=== PATIENT | female | born 1945 | race Caucasian/White ===

== ENCOUNTER 2020-11-13 08:15 | Observation (INO) ==
--- NOTE | 2020-11-13 08:44 | Emergency Department Note ---
Impression & Plan Paresthesia of right arm and leg, Headache, Dizziness, Renal insufficiency ED Provider Note NAME: SOLANGE PINZON AGE: 75 SEX: F ARRIVES VIA: Walk-In INFORMANT: Patient, ED PROVIDER(S): Delta Max MD CHIEF COMPLAINT: Right sided numbness and tingling. Headache PLAN: Disposition: Admit MEDICAL DECISION MAKING: The patient is a pleasant 75-year-old woman with a past medical history of CKD, hypothyroidism, hyperlipidemia who presents to the emergency department with acute onset of right face, arm and leg numbness and tingling which occurred when she was in the kitchen preparing meal for her grandsons baseball game and began to feel these symptoms and then suddenly felt short of breath. The patient reports waking this morning feeling normal without any complaints. She denies any recent fevers, chills, cough, congestion, GI or symptoms. Denies any known COVID-19 exposures. She denies any history of significant anxiety. On arrival the patient is anxious appearing no acute distress, afebrile with stable vital signs. She has no objective focal neurologic deficits. She subjectively reports difference in sensation of her right face, arm and leg. EKG without overt acute ischemia. Chest x-ray negative for acute c ardiopulmonary process. WBC, H/H in place within normal limits. Chemistry without metabolic acidosis. Creatinine 1.26 consistent with the patient's clinically dry appearance however no prior values for comparison. Lactate 1.7, within normal limits. LFTs are unremarkable. Initial troponin negative/undetectable. COVID-19 PCR negative. Influenza and RSV PCR also negative. CT of the head and CTA of the head and neck were negative for acute findings. Of note, incidental 3 mm aneurysm was i dentified as well as evidence of microvascular disease. Upon reevaluation the patient did feel improvement after IV fluid hydration however still with residual symptoms. Therefore she was in agreement with plan for admission for further evaluation and possible MRI. Case was discussed with Demetrio Bennett, with Dr. Marcus Atkinson hospitalist who will evaluate the patient for admission. This patient was managed with the assistance of resident, Dr. Morrow. I discussed the case with the resident, examined the patient, and confirm the findings and plan as documented in this note. Triage Nursing notes reviewed and agree them. Prior medical records reviewed Vital Signs: reviewed and remarkable for no significant abnormalities Differential diagnosis: Infection, dehydration, metabolic abnormality, hypo/hyperglycemia, electrolyte disturbance, anemia, hypoxia, cardiac sources, intracerebral event, toxicologic, neurologic, as well as other pathologies. ER treatment provided: See below. Diagnostics interpreted by me: ECG: NSR, 63 bpm, no ectopy, no overt ST elevation or depression. Cardiac Monitoring: An order for continuous cardiac monitoring was placed and demonstrated NSR, 63 bpm, no ectopy. Laboratory studies: See below Imaging studies: See below Consultation(s): Case was discussed with Demetrio Bennett PAC, with Dr. Marcus Atkinson hospitalist who will evaluate the patient for admission. HPI: The patient is a pleasant 75-year-old woman with a past medical history of CKD, hypothyroidism, hyperlipidemia who presents to the emergency department with acute onset of right face, arm and leg numbness and tingling which occurred when she was in the kitchen preparing meal for her grandsons baseball game and began to feel these symptoms and then suddenly felt short of breath. The patient reports waking this morning feeling normal without any complaints. She denies any recent fevers, chills, cough, congestion, GI or symptoms. Denies any known COVID-19 exposures. She denies any history of significant anxiety. On arrival the patient is anxious appearing no acute distress, afebrile with stable vital signs. She has no objective focal neurologic deficits. She subjectively reports difference in sensation of her right face, arm and leg. ROS: See above HPI for pertinent positives & negatives. A total of 10 systems reviewed and were otherwise negative. PAST MEDICAL HISTORY:See Below PAST SURGICAL HISTORY:See Below FAMILY HISTORY:See Below SOCIAL HISTORY:See Below HOME MEDICATIONS:See Below ALLERGIES:See Below VITALS:See Below PHYSICAL EXAMINATION: GENERAL: Awake, alert, anxious-appearing, in no distress HENT: Normocephalic, atraumatic. Oropharynx with dry mucous membranes and otherwise unremarkable. EYES: Normal conjunctiva. Sclera non-icteric. EOMI. No nystamgus. PEARRL. NECK: Supple. No nuchal rigidity. FROM. No JVD. RESPIRATORY: Clear to auscultation. CARDIAC: Regular rate, normal rhythm. Extremities warm and well perfused. Pulses equal. ABDOMEN: Soft, non-distended. No tenderness to palpation. No rebound or gu arding. No masses. RECTAL: Deferred. MUSCULOSKELETAL: Chest examination reveals no tenderness. The back is symmetrical on inspection without obvious abnormality. There is no CVA tenderness to palpation. No joint edema. LOWER EXTREMITIES: Calves are equal size bilaterally and non-tender. No edema. No discoloration. NEURO: Normal sensorium. No sensory or motor deficits noted. CNII-XII grossly intact. 5/5 strength and SILT x 4 extremities. Cerebellar function intact including [id number], alternating palms, [id number]. Speech is fluent. SKIN: No rash or jaundice noted. Delta Max MD Past Med/Surg History Medical History CKD (chronic kidney disease), stage III Dyslipidemia Hypothyroidism Surgical History History of hysterectomy Family History Brother Colorectal cancer Sister Uterine cancer Mother Ovarian cancer Other Cancer Social History Smoking Status: Never smoker Hx Alcohol Use: Yes Alcohol Intake Frequency: Monthly or Less Hx Substance Use: No Preferred Language: [place] Islander Telecommunicator Supervisor Required: No Beliefs That Will Affect Care: None Current Living Situation: Spouse Feels Safe at Home: Yes Safety Concerns: Feels Safe At This Time Allergies Allergies Allergy/AdvReac Type Severity Reaction Status Date / Time No Known Allergies Allergy Unverified 11/13/20 12:45 Home Meds Home Medications Medication Instructions Recorded Confirmed levothyroxine [Synthroid] 25 mcg PO DAILY 11/13/20 11/13/20 losartan 50 mg PO DAILY 11/13/20 11/13/20 multivitamin 1 tab PO DAILY 11/13/20 11/13/20 [id number] oil-D3 [Fish 1 cap PO DAILY 11/13/20 11/13/20 Oil-Vit D3] Results & Data (ED) Vital Signs Vital Signs - 24 hr 11/13/20 08:19 11/13/20 08:21 11/13/20 09:15 Temperature 36.4 C L Temperature Source Temporal Artery Scan Pulse Rate 77 Pulse Rate [Left Apical] Pulse Rhythm [Left Apical] Pulse Strength [Left Apical] Respiratory Rate 20 Respiratory Effort / Characteristics Non-Labored Respiratory Depth Normal Respiratory Pattern Regular Blood Pressure 159/88 H Blood Pressure [Right Arm] Blood Pressure Mean 111 Blood Pressure Mean [Right Arm] Blood Pressure Position Sitting Blood Pressure Position [Right Arm] Pulse Oximetry 99 97 99 Oxygen Delivery Method Room Air Room Air Room Air Sepsis Recent Fever Within 48 Hours No Sepsis New/Unexplained Change in Mental Status No Sepsis Action Taken by Nursing No Action Required 11/13/20 11:00 Temperature Temperature Source Pulse Rate Pulse Rate [Left Apical] 68 Pulse Rhythm [Left Apical] Regular Pulse Strength [Left Apical] Normal Respiratory Rate 15 Respiratory Effort / Characteristics Non-Labored Spontaneous Respiratory Depth Normal Respiratory Pattern Regular Blood Pressure Blood Pressure [Right Arm] 197/109 H Blood Pressure Mean Blood Pressure Mean [Right Arm] 138 Blood Pressure Position Blood Pressure Position [Right Arm] Lying Pulse Oximetry 98 Oxygen Delivery Method Room Air Sepsis Recent Fever Within 48 Hours Sepsis New/Unexplained Change in Mental Status Sepsis Action Taken by Nursing Laboratory Data Attestation: I reviewed the patient's lab results. Result diagrams: 11/13/20 09:15 11/13/20 09:15 Lab Results 11/13/20 11/13/20 11/13/20 Range/Units 09:15 09:15 09:15 WBC 5.17 (4.8-10.8) K/uL RBC 4.37 (4.2-5.4) M/uL Hgb 14.5 (12.0-16.0) g/dL Hct 40.8 (37-47) % MCV 93.4 (80-100) fL MCH 33.2 (25-34) pg MCHC 35.5 (32-36) g/dL RDW Std Deviation 46.8 H (36.4-46.3) fL RDW Coeff of Attila 13.7 (11.5-14.5) % Plt Count 266 (130-400) K/uL MPV 8.7 (7.4-10.4) fL Immature Gran % (Auto) 0.2 % Neut % (Auto) 48.5 % Lymph % (Auto) 43.3 % Miner % (Auto) 6.0 % Eos % (Auto) 1.4 % Baso % (Auto) 0.6 % Neut # (Auto) 2.51 (1.4-6.5) K/uL Lymph # (Auto) 2.24 (1.2-3.4) K/uL Miner # (Auto) 0.31 (0.11-0.59) K/uL Eos # (Auto) 0.07 (0-0.5) K/uL Baso # (Auto) 0.03 (0-0.2) K/uL Immature Gran # (Auto) 0.01 (0.00-0.02) K/uL PT (9.0-12.0) Seconds INR (0.9-1.1) APTT (21.0-31.0) Seconds PTT Ratio Sodium 138 (136-145) mmol/L Potassium 4.3 (3.5-5.1) mmol/L Chloride 107 (98-107) mmol/L Carbon Dioxide 25 (21-32) mmol/L Anion Gap 6.0 (3-11) BUN 21 H (7-18) mg/dl Creatinine 1.26 H (0.6-1.2) mg/dl Est Cr Clr Drug Dosing Not Reportable Est GFR ( Amer) 48.3 Est GFR (Non-Af Amer) 41.6 BUN/Creatinine Ratio 16.8 (10-20) Glucose 139 H (70-99) mg/dl Lactate 1.7 (0.4-2.0) mmol/L Calcium 9.4 (8.5-10.1) mg/dl Phosphorus 3.5 (2.5-4.9) mg/dl Magnesium 1.9 (1.8-2.4) mg/dl Total Bilirubin 0.4 (0.2-1) mg/dl AST 12 L (15-37) U/L ALT 26 (12-78) U/L Alkaline Phosphatase 114 (45-117) U/L Troponin I < 0.015 (0-0.045) ng/ml Total Protein 7.6 (6.4-8.2) gm/dl Albumin 3.5 (3.4-5.0) gm/dl Globulin 4.1 H (2.5-4.0) gm/dl Albumin/Globulin Ratio 0.8 L (0.9-2) Lyme Disease IgG Ab (Negative) Lyme Disease IgM Ab (Negative) COVID-19 Eval Order SARS-CoV-2 (PCR) (Negative) Influenza Type A (PCR) (Neg) Influenza Type B (PCR) (Neg) RSV (RT-PCR) (Neg) 11/13/20 11/13/20 11/13/20 Range/Units 09:15 09:15 09:20 WBC (4.8-10.8) K/uL RBC (4.2-5.4) M/uL Hgb (12.0-16.0) g/dL Hct (37-47) % MCV (80-100) fL MCH (25-34) pg MCHC (32-36) g/dL RDW Std Deviation (36.4-46.3) fL RDW Coeff of Attila (11.5-14.5) % Plt Count (130-400) K/uL MPV (7.4-10.4) fL Immature Gran % (Auto) % Neut % (Auto) % Lymph % (Auto) % Miner % (Auto) % Eos % (Auto) % Baso % (Auto) % Neut # (Auto) (1.4-6.5) K/uL Lymph # (Auto) (1.2-3.4) K/uL Miner # (Auto) (0.11-0.59) K/uL Eos # (Auto) (0-0.5) K/uL Baso # (Auto) (0-0.2) K/uL Immature Gran # (Auto) (0.00-0.02) K/uL PT 9.4 (9.0-12.0) Seconds INR 0.9 (0.9-1.1) APTT 24.4 (21.0-31.0) Seconds PTT Ratio 0.9 Sodium (136-145) mmol/L Potassium (3.5-5.1) mmol/L Chloride (98-107) mmol/L Carbon Dioxide (21-32) mmol/L Anion Gap (3-11) BUN (7-18) mg/dl Creatinine (0.6-1.2) mg/dl Est Cr Clr Drug Dosing Est GFR ( Amer) Est GFR (Non-Af Amer) BUN/Creatinine Ratio (10-20) Glucose (70-99) mg/dl Lactate (0.4-2.0) mmol/L Calcium (8.5-10.1) mg/dl Phosphorus (2.5-4.9) mg/dl Magnesium (1.8-2.4) mg/dl Total Bilirubin (0.2-1) mg/dl AST (15-37) U/L ALT (12-78) U/L Alkaline Phosphatase (45-117) U/L Troponin I (0-0.045) ng/ml Total Protein (6.4-8.2) gm/dl Albumin (3.4-5.0) gm/dl Globulin (2.5-4.0) gm/dl Albumin/Globulin Ratio (0.9-2) Lyme Disease IgG Ab Negative (Negative) Lyme Disease IgM Ab Negative (Negative) COVID-19 Eval Order CovFluRsv at [facility] SARS-CoV-2 (PCR) (Negative) Influenza Type A (PCR) (Neg) Influenza Type B (PCR) (Neg) RSV (RT-PCR) (Neg) 11/13/20 Range/Units 09:20 WBC (4.8-10.8) K/uL RBC (4.2-5.4) M/uL Hgb (12.0-16.0) g/dL Hct (37-47) % MCV (80-100) fL MCH (25-34) pg MCHC (32-36) g/dL RDW Std Deviation (36.4-46.3) fL RDW Coeff of Attila (11.5-14.5) % Plt Count (130-400) K/uL MPV (7.4-10.4) fL Immature Gran % (Auto) % Neut % (Auto) % Lymph % (Auto) % Miner % (Auto) % Eos % (Auto) % Baso % (Auto) % Neut # (Auto) (1.4-6.5) K/uL Lymph # (Auto) (1.2-3.4) K/uL Miner # (Auto) (0.11-0.59) K/uL Eos # (Auto) (0-0.5) K/uL Baso # (Auto) (0-0.2) K/uL Immature Gran # (Auto) (0.00-0.02) K/uL PT (9.0-12.0) Seconds INR (0.9-1.1) APTT (21.0-31.0) Seconds PTT Ratio Sodium (136-145) mmol/L Potassium (3.5-5.1) mmol/L Chloride (98-107) mmol/L Carbon Dioxide (21-32) mmol/L Anion Gap (3-11) BUN (7-18) mg/dl Creatinine (0.6-1.2) mg/dl Est Cr Clr Drug Dosing Est GFR ( Amer) Est GFR (Non-Af Amer) BUN/Creatinine Ratio (10-20) Glucose (70-99) mg/dl Lactate (0.4-2.0) mmol/L Calcium (8.5-10.1) mg/dl Phosphorus (2.5-4.9) mg/dl Magnesium (1.8-2.4) mg/dl Total Bilirubin (0.2-1) mg/dl AST (15-37) U/L ALT (12-78) U/L Alkaline Phosphatase (45-117) U/L Troponin I (0-0.045) ng/ml Total Protein (6.4-8.2) gm/dl Albumin (3.4-5.0) gm/dl Globulin (2.5-4.0) gm/dl Albumin/Globulin Ratio (0.9-2) Lyme Disease IgG Ab (Negative) Lyme Disease IgM Ab (Negative) COVID-19 Eval Order SARS-CoV-2 (PCR) NEGATIVE (Negative) Influenza Type A (PCR) Negative (Neg) Influenza Type B (PCR) Negative (Neg) RSV (RT-PCR) Negative (Neg) Administered Medications Heparin Sodium (Porcine) (Heparin Sod 5,000 Unit/0.5 Ml Vial) 5,000 units SQ Q8 CORRINA Stop: 12/13/20 13:59 Last Admin: 11/13/20 20:33 Dose: 5,000 units Documented by: [id number] Admin: 11/13/20 15:24 Dose: 5,000 units Documented by: [id number] Discontinued Medications Acetaminophen (Acetaminophen 1000 Mg/100 Ml Iv) 1,000 mg IV Q8H PRN PRN Reason: Pain Stop: 11/16/20 09:24 Last Admin: 11/13/20 11:03 Dose: 1,000 mg Documented by: [id number] Clopidogrel Bisulfate (Clopidogrel Bisulfate 75 Mg Tab) 75 mg PO NOW STA Stop: 11/13/20 15:30 Last Admin: 11/13/20 16:55 Dose: 75 mg Documented by: [id number] Gadobutrol (Gadobutrol 65ml Vial) 8.5 ml IV ONCE ONE Stop: 11/13/20 18:55 Last Admin: 11/13/20 18:55 Dose: 8.5 ml Documented by: [id number] Lactated Ringer's (Lr) 1,000 mls @ 999 mls/hr IV .Q1H1M CORRINA Stop: 11/13/20 10:30 Last Infusion: 11/13/20 12:05 Dose: 0 mls/hr Documented by: [id number] Admin: 11/13/20 11:04 Dose: 999 mls/hr Documented by: [id number] Ioversol (Ioversol 350 500ml) 116 ml IV ONCE ONE Stop: 11/13/20 10:07 Last Admin: 11/13/20 13:36 Dose: Not Given Documented by: [id number] Ondansetron HCl (Ondansetron Inj 2 Mg/Ml 2 Ml Vial) 4 mg IV NOW STA Stop: 11/13/20 08:50 Last Admin: 11/13/20 09:23 Dose: 4 mg Documented by: [id number] Imaging Data Radiologist's Impression: Chest X-Ray 11/13/20 08:49 XR chest 1V portable HISTORY: 75 years-old Female Chest Pain . Acute atypical chest pain COMPARISON: None TECHNIQUE: Portable AP view of the chest FINDINGS: Cardiac silhouette is upper limits of normal in size. No pneumothorax, pleural effusion, airspace consolidation or overt pulmonary edema. Bones of the chest appear grossly intact. Degenerative changes of the shoulders and spine. IMPRESSION: No acute process. ACT 112: Negative or not required by law. The above report was generated using voice recognition software. It may contain grammatical, syntax or spelling errors. Electronically signed by: Keith Moreno M.D. 11/13/2020 9:[address] 11/13/20 08:[address] DOSE: HISTORY: Right-sided numbness. Stroke Like Symptoms TECHNIQUE: Multiaxial CT images of the head were performed without the use of intravenous contrast. Automated exposure control was utilized for this study. A dose lowering technique was utilized adhering to the principles of ALARA. Comparison: None. Findings: The paranasal sinuses and mastoid air cells are clear. The calvarium and skull base are intact. There is no mass, hematoma, midline shift, acute infarct. White matter hypodensity is nonspecific but suggestive of microvascular ischemic change. The ventricles and sulci demonstrate mild age-related involutional changes. Impression: No acute intracranial abnormality. Atrophy and microvascular ischemic changes. ACT 112: Negative or not required by law. Electronically signed by: Ciro Santos M.D. 11/13/2020 10:37 AM Head CTA 11/13/20 08:50 CTA ANGIOGRAPHY OF THE HEAD CLINICAL HISTORY: Stroke like symptoms. Right-sided numbness. COMPARISON STUDY: No previous studies for comparison. TECHNIQUE: Helical axial images of the head were obtained following uneventful intravenous administration of 116 cc of Optiray. Sagittal and coronal reconstructions were viewed as well as maximal intensity projections on an independent 3-D workstation. Automated exposure control was utilized for the study. A dose lowering technique was utilized adhering to the principles of ALARA. CT DOSE: 1073.07 mGy.cm FINDINGS: No acute intracranial hemorrhage, midline shift or mass effect is present. Ventricular system is normal. Basilar cisterns are patent. There are no extra-axial collections. No central vessel occlusion is noted. Note is made of a 3 mm aneurysm arising from the A2 segment of the left anterior cerebral artery shown on axial image 129 of 223. Tiny outpouchings of the bilateral cavernous carotids are noted and related to atherosclerosis. Posterior circulation is intact. No dissection within the intracranial vessels. Right vertebral artery is dominant. Left A1 segment is hypoplastic. IMPRESSION: 1. No central vessel occlusion. 2. 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 3. Mild atherosclerosis of the intracranial vessels. ACT 112: Negative or not required by law. Electronically signed by: Basim Vang M.D. 11/13/2020 10:42 AM Neck CTA 11/13/20 08:50 NECK CTA HISTORY: Right-sided numbness. Stroke Like Symptoms TECHNIQUE: Multiaxial CT images of the neck were performed following the intravenous administration of contrast to evaluate the major cervical vessels. Maximum intensity projection images were also obtained. All measurements were calculated based on NASCET criteria. A dose lowering technique was utilized adhering to the principles of ALARA. COMPARISON STUDY: None. FINDINGS: The aortic arch and proximal great vessels are widely patent. There is no significant stenosis, occlusion, or dissection identified within the bilateral common carotid, internal carotid, or vertebral arteries. Hypoplastic left vertebral artery. There is a focal slightly beaded appearance within the distal left internal carotid artery best seen on image 270. No associated stenosis. This could represent fibromuscular dysplasia. IMPRESSION: 1. No significant stenosis, occlusion, or dissection identified within the carotid or vertebral arteries. 2. There is a focal slightly beaded appearance within the distal left internal carotid artery. No associated stenosis. This could represent fibromuscular dysplasia. ACT 112: Negative or not required by law. Electronically signed by: Ciro Santos M.D. 11/13/2020 10:41 AM Discharge Plan Visit Data Chief Complaint: Shortness of Breath/Dyspnea Stated Complaint: NUMBNESS GOING DOWN RIGHT SIDE - SOB ED Provider: Delta Max ED Midlevel Provider: Dylon Morrow I. Discharge Problem: Paresthesia of right arm and leg, Headache, Dizziness, Renal insufficiency Patient Disposition: Admitted As Inpatient Discharge Instructions Interventions: ED Discharge Assessment Last Done: 11/13/20 13:06 Discharge Problem: Headache Qualifiers: Headache type: unspecified Headache chronicity pattern: unspecified pattern Intractability: not intractable Qualified Code(s): R51.9 - Headache, unspecified
[2020-11-13] MEDS ORDERED: ONDANSETRON INJ 2 MG/ML 2 ML VIAL IV STA (08:49)
--- NOTE | 2020-11-13 09:13 | XRay Report ---
XR chest 1V portable HISTORY: 75 years-old Female Chest Pain . Acute atypical chest pain COMPARISON: None TECHNIQUE: Portable AP view of the chest FINDINGS: Cardiac silhouette is upper limits of normal in size. No pneumothorax, pleural effusion, airspace con solidation or overt pulmonary edema. Bones of the chest appear grossly intact. Degenerative changes o f the shoulders and spine. IMPRESSION: No acute process. ACT 112: Negative or not required by law. The above report was generated using voice recognition software. It may contain grammatical, syntax o r spelling errors. Electronically signed by: Keith Moreno M.D. 11/13/2020 9:11 AM
[2020-11-13 09:24] LABS: Basophils # (auto) 0.03 K/uL (0-0.2); Basophils % (auto) 0.6 %; Eosinophils # (auto) 0.07 K/uL (0-0.5); Eosinophils % (auto) 1.4 %; Hematocrit (blood only) 40.8 % (37-47); Hemoglobin 14.5 g/dL (12.0-16.0); Immature Granulocytes # (auto) 0.01 K/uL (0.00-0.02); Immature Granulocytes % (auto) 0.2 %; Lymphocytes # (auto) 2.24 K/uL (1.2-3.4); Lymphocytes % (auto) 43.3 %; Mean Corpuscular Hemoglobin 33.2 pg (25-34); Mean Corpuscular Hgb Conc 35.5 g/dL (32-36); Mean Corpuscular Volume 93.4 fL (80-100); Mean Platelet Volume 8.7 fL (7.4-10.4); Monocytes # (auto) 0.31 K/uL (0.11-0.59); Neutrophils # (auto) 2.51 K/uL (1.4-6.5); Neutrophils % (auto) 48.5 %; Platelet Count 266 K/uL (130-400); RDW Coefficient of Variation 13.7 % (11.5-14.5); RDW Standard Deviation 46.8 fL (36.4-46.3); Red Blood Count 4.37 M/uL (4.2-5.4); White Blood Count 5.17 K/uL (4.8-10.8)
--- NOTE | 2020-11-13 09:24 | Emergency Department Note ---
ED Visit Note I have seen and evaluated the patient. I have discussed the case with Dr. Max and agree with his plan as documented. Dylon Morrow MD PGY-2 . Resident Activity Tracking Resident Involvement: Resident Care Provided Care Provided: Adult ED
[2020-11-13] MEDS ORDERED: ACETAMINOPHEN 1000 MG/100 ML IV IV PRN (09:25)
[2020-11-13] MEDS ORDERED: LACTATED RINGER'S 1,000 ML IV SCH (09:30)
[2020-11-13 09:38] LABS: INR 0.9 (0.9-1.1); Partial Thromboplastin Ratio 0.9; Partial Thromboplastin Time 24.4 Seconds (21.0-31.0); Prothrombin Time 9.4 Seconds (9.0-12.0)
[2020-11-13 09:49] LABS: Albumin Level 3.5 gm/dl (3.4-5.0); BUN Creatinine Ratio 16.8 (10-20); Blood Urea Nitrogen 21 mg/dl (7-18); Calcium 9.4 mg/dl (8.5-10.1); Carbon Dioxide 25 mmol/L (21-32); Chloride 107 mmol/L (98-107); Est GFR (African American) 48.3; Est GFR (Non-African American) 41.6; Glucose 139 mg/dl (70-99); Magnesium 1.9 mg/dl (1.8-2.4); Potassium 4.3 mmol/L (3.5-5.1); Sodium 138 mmol/L (136-145)
[2020-11-13 09:54] LABS: Alanine Aminotransferase 26 U/L (12-78); Albumin Globulin Ratio 0.8 (0.9-2); Alkaline Phosphatase 114 U/L (45-117); Aspartate Aminotransferase 12 U/L (15-37); Bilirubin,Total 0.4 mg/dl (0.2-1); Globulin 4.1 gm/dl (2.5-4.0); Phosphorus 3.5 mg/dl (2.5-4.9); Total Protein 7.6 gm/dl (6.4-8.2); Troponin I < 0.015 ng/ml (0-0.045)
[2020-11-13] MEDS ORDERED: OPTIRAY 350 500ml IV ONE (10:06)
[2020-11-13 10:35] LABS: Influenza A virus by PCR Negative (Neg); Influenza B virus by PCR Negative (Neg); RSV by PCR Negative (Neg); SARS CoV2 RNA(COVID-19) InHosp NEGATIVE (Negative)
--- NOTE | 2020-11-13 10:39 | CT Scan Report ---
HEAD CT NONCONTRAST CT DOSE: HISTORY: Right-sided numbness. Stroke Like Symptoms TECHNIQUE: Multiaxial CT images of the head were performed without the use of intravenous contrast. A utomated exposure control was utilized for this study. A dose lowering technique was utilized adheri ng to the principles of ALARA. Comparison: None. Findings: The paranasal sinuses and mastoid air cells are clear. The calvarium and skull base are int act. There is no mass, hematoma, midline shift, acute infarct. White matter hypodensity is nonspecifi c but suggestive of microvascular ischemic change. The ventricles and sulci demonstrate mild age-rela shanta involutional changes. Impression: No acute intracranial abnormality. Atrophy and microvascular ischemic changes. ACT 112: Negative or not required by law. Electronically signed by: Ciro Santos M.D. 11/13/2020 10:37 AM
--- NOTE | 2020-11-13 10:42 | CT Scan Report ---
NECK CTA HISTORY: Right-sided numbness. Stroke Like Symptoms TECHNIQUE: Multiaxial CT images of the neck were performed following the intravenous administration o f contrast to evaluate the major cervical vessels. Maximum intensity projection images were also obta ined. All measurements were calculated based on NASCET criteria. A dose lowering technique was utili zed adhering to the principles of ALARA. COMPARISON STUDY: None. FINDINGS: The aortic arch and proximal great vessels are widely patent. There is no significant sten osis, occlusion, or dissection identified within the bilateral common carotid, internal carotid, or v ertebral arteries. Hypoplastic left vertebral artery. There is a focal slightly beaded appearance wit hin the distal left internal carotid artery best seen on image 270. No associated stenosis. This coul d represent fibromuscular dysplasia. IMPRESSION: 1. No significant stenosis, occlusion, or dissection identified within the carotid or vertebral arter ies. 2. There is a focal slightly beaded appearance within the distal left internal carotid artery. No ass ociated stenosis. This could represent fibromuscular dysplasia. ACT 112: Negative or not required by law. Electronically signed by: Ciro Santos M.D. 11/13/2020 10:41 AM
--- NOTE | 2020-11-13 10:44 | CT Scan Report ---
CTA ANGIOGRAPHY OF THE HEAD CLINICAL HISTORY: Stroke like symptoms. Right-sided numbness. COMPARISON STUDY: No previous studies for comparison. TECHNIQUE: Helical axial images of the head were obtained following uneventful intravenous administr ation of 116 cc of Optiray. Sagittal and coronal reconstructions were viewed as well as maximal inten sity projections on an independent 3-D workstation. Automated exposure control was utilized for the study. A dose lowering technique was utilized adhering to the principles of ALARA. CT DOSE: 1073.07 mGy.cm FINDINGS: No acute intracranial hemorrhage, midline shift or mass effect is present. Ventricular syst em is normal. Basilar cisterns are patent. There are no extra-axial collections. No central vessel oc clusion is noted. Note is made of a 3 mm aneurysm arising from the A2 segment of the left anterior ce rebral artery shown on axial image 129 of 223. Tiny outpouchings of the bilateral cavernous carotids are noted and related to atherosclerosis. Posterior circulation is intact. No dissection within the i ntracranial vessels. Right vertebral artery is dominant. Left A1 segment is hypoplastic. IMPRESSION: 1. No central vessel occlusion. 2. 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 3. Mild atherosclerosis of the intracranial vessels. ACT 112: Negative or not required by law. Electronically signed by: Basim Vang M.D. 11/13/2020 10:42 AM
--- NOTE | 2020-11-13 11:50 | History & Physical Report ---
Date of Service November 13, 2020 History of Present Illness Primary Care Provider: Diogo Harvey MD Home Medications Medication Instructions Recorded Confirmed Type levothyroxine [Synthroid] 25 mcg PO DAILY 11/13/20 11/13/20 History losartan 50 mg PO DAILY 11/13/20 11/13/20 History multivitamin 1 tab PO DAILY 11/13/20 11/13/20 History [id number]-[id number] oil-D3 [Fish 1 cap PO DAILY 11/13/20 11/13/20 History Oil-Vit D3] Past Med/Surg History Social History Feels Safe at Home: Yes Results & Data Results & Data ([facility]) Vital Signs (Past 12 Hours) Vital Signs Temp Pulse Pulse Resp BP BP Pulse Ox 11/13/20 11:00 68 15 197/109 H 98 11/13/20 09:15 99 11/13/20 08:21 97 11/13/20 08:19 36.4 C L 77 20 159/88 H 99 Code Status & VTE Plan VTE Prophylaxis Plan VTE Prophylaxis will be ordered: Yes
[2020-11-13] MEDS ORDERED: ACETAMINOPHEN 325 MG TAB PO PRN (13:32)
[2020-11-13] MEDS ORDERED: POLYETHYLENE (MIRALAX) 17 GM PACK PO PRN (13:32)
[2020-11-13] MEDS ORDERED: ONDANSETRON INJ 2 MG/ML 2 ML VIAL IV PRN (13:32)
[2020-11-13] MEDS ORDERED: PHARMACIST DISCHARGE MED REC CONSULT PRN (13:32)
--- NOTE | 2020-11-13 14:04 | History & Physical Report ---
Date of Service November 13, 2020 Assessment & Plan (1) Paresthesia of right arm and leg: Pt is 75 y/o F with PMH CKD III, dyslipidemia, hypothyroidism presented to ER with c/o right sided arm and leg paresthesias, lightheaded sensation today. In ER afebrile, BP: 159/88, R: 20, P: 77, 99% on RA. No leukocytosis, no significant electrolyte abnormality, glucose: 139, negative troponin, Negative COVID 19 PCR CTA Head: No central vessel occlusion. 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 Mild atherosclerosis of the intracranial vessels. NECK CTA: No significant stenosis, occlusion, or dissection identified within the carotid or vertebral arteries. There is a focal slightly beaded appearance within the distal left internal carotid artery. No associated stenosis. This could represent fibromuscular dysplasia. DDX: TIA, CVA, hypertensive emergency -Pt took 325mg aspirin prior to arrival -Tele to monitor for arrhythmias -Monitor BP closely. Had reading of 197/109 in ER back down to 154/93 -Obtain orthostatics. Pt received 1L LR in ER. May need additional fluid. -TSH, UA, Vitamin B12 pending -MRI brain -echo with bubble study -aspiration precautions -PT/OT consult -May need to add statin, aspirin pending further studies -neurology consult (2) CKD (chronic kidney disease), stage III: Cr: 1.26. Baseline Cr: 1.4 -Monitor renal functions, avoid nephrotoxic agents when possible (3) Hypothyroidism: -TSH pending -Continue levothyroxine (4) Dyslipidemia: -Continue fish oil -Lipids pending, may need additional medication DVT Prophylaxis -SCDs Full Code as per discussion with pt Follows with Dr Harvey for routine care Pt was seen and care coordinated with Dr May. See addendum Admission and Anticipated Discharge Date Admission Date: November 13, 2020 History of Present Illness Chief Complaint: right sided paresthesias Primary Care Provider: Diogo Harvey MD Pt is 75 y/o F with PMH CKD III, dyslipidemia, hypothyroidism presented to ER with c/o right sided paresthesias today. Patient states this morning was standing in kitchen for approximately 20 minutes when she started with right arm and right leg paresthesias described as tingling sensation. She also reports felt lightheaded. She reports she went upstairs to let her and was afraid that she would fall secondary to the paresthesias however is unsure if she had weakness of her extremities. When she was telling her about symptoms she reported that she was having trouble catching her breath and had some slight nausea. Patient reports she thinks this was secondary to being concerned about the symptoms she was having. Also complains of "headachy feeling" but not true headache. Denies any vomiting, diarrhea, syncope, vision changes. She took full aspirin prior to arrival. Had cup coffee today and a little orange juice. Patient reports was still having right-sided paresthesias upon ER arrival however thinks they have since resolved. She does report that she felt lightheaded when ambulating to bathroom in ER. Patient received a second COVID-19 vaccination on 10/06/2020. She traveled to [place] 10/22/2020 and returned home last week. Denies any known tick bites. Denies fever/chills, diaphoresis, syncope, vision changes, neck pain, CP, orthopnea, palpitations, cough, sore throat, choking, otalgia, rhinorrhea, abdominal pain, extremity edema, rashes, urinary symptoms. Allergies Allergy/AdvReac Type Severity Reaction Status Date / Time No Known Allergies Allergy Unverified 11/13/20 12:45 Home Medications Medication Instructions Recorded Confirmed Type levothyroxine [Synthroid] 25 mcg PO DAILY 11/13/20 11/13/20 History losartan 50 mg PO DAILY 11/13/20 11/13/20 History multivitamin 1 tab PO DAILY 11/13/20 11/13/20 History [id number]-ago-epa-fish oil-D3 [Fish 1 cap PO DAILY 11/13/20 11/13/20 History Oil-Vit D3] Past Med/Surg History Medical History CKD (chronic kidney disease), stage III Dyslipidemia Hypothyroidism Surgical History History of hysterectomy Family History Brother Colorectal cancer Sister Uterine cancer Mother Ovarian cancer Other Cancer Social History Smoking Status: Never smoker Hx Alcohol Use: Yes Alcohol Intake Frequency: Monthly or Less Hx Substance Use: No Preferred Language: Icelandic 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 Beliefs That Will Affect Care: None Current Living Situation: Spouse Feels Safe at Home: Yes Safety Concerns: Feels Safe At This Time Review of Systems Review of Systems: All systems reviewed & are unremarkable except as noted in HPI & below Physical Exam Physical Exam: General: no distress, WDWN Head: normocephalic, atraumatic Eyes: PERRL, EOM's intact, no nystagmus, conjunctiva non-injected, anicteric ENT: normal inspection external ears, nose, mucous membranes moist Neck: supple, trachea midline, ROM intact Lungs: clear, no respiratory distress, no wheezing/rhonchi/rales CV: RRR, no murmur, no pretibial edema Abd: normal BS, soft, non-tender Ext: no cyanosis, no calf tenderness Neuro: A&O x 3, Facial sensation is intact and symmetric, face is strong and symmetric, Hearing grossly intact, Soft palate elevates symmetrically, no dysarthria, Shoulder shrug intact, Tongue is midline, normal movement, no fasciculations. Muscle tone normal. Normal affect Skin: warm, dry Results & Data Results & Data ([facility]) Vital Signs (Past 12 Hours) Vital Signs Temp Pulse Pulse Resp BP BP BP 11/13/20 13:32 37.0 C 65 14 151/99 H 11/13/20 13:06 70 20 159/86 H 11/13/20 11:00 68 15 197/109 H 11/13/20 09:15 11/13/20 08:21 11/13/20 08:19 36.4 C L 77 20 159/88 H Pulse Ox 11/13/20 13:32 95 11/13/20 13:06 98 11/13/20 11:00 98 11/13/20 09:15 99 11/13/20 08:21 97 11/13/20 08:19 99 Laboratory Results Short CBC 11/13/20 11/13/20 Range/Units 09:15 09:15 WBC 5.17 (4.8-10.8) K/uL Hgb 14.5 (12.0-16.0) g/dL Hct 40.8 (37-47) % Plt Count 266 (130-400) K/uL Creatinine 1.26 H (0.6-1.2) mg/dl BMP 11/13/20 09:15 Sodium 138 Potassium 4.3 Chloride 107 Carbon Dioxide 25 BUN 21 H Creatinine 1.26 H Glucose 139 H Calcium 9.4 Cardiac Enzymes 11/13/20 Range/Units 09:15 Troponin I < 0.015 (0-0.045) ng/ml Liver Function 11/13/20 Range/Units 09:15 Total Bilirubin 0.4 (0.2-1) mg/dl AST 12 L (15-37) U/L ALT 26 (12-78) U/L Alkaline Phosphatase 114 (45-117) U/L Albumin 3.5 (3.4-5.0) gm/dl Diagnostic Findings Chest X-Ray 11/13/20 08:49 XR chest 1V portable HISTORY: 75 years-old Female Chest Pain . Acute atypical chest pain COMPARISON: None TECHNIQUE: Portable AP view of the chest FINDINGS: Cardiac silhouette is upper limits of normal in size. No pneumothorax, pleural effusion, airspace consolidation or overt pulmonary edema. Bones of the chest appear grossly intact. Degenerative changes of the shoulders and spine. IMPRESSION: No acute process. ACT 112: Negative or not required by law. The above report was generated using voice recognition software. It may contain grammatical, syntax or spelling errors. Electronically signed by: Keith Moreno M.D. 11/13/2020 9:[address] 11/13/20 08:[address] DOSE: HISTORY: Right-sided numbness. Stroke Like Symptoms TECHNIQUE: Multiaxial CT images of the head were performed without the use of intravenous contrast. Automated exposure control was utilized for this study. A dose lowering technique was utilized adhering to the principles of ALARA. Comparison: None. Findings: The paranasal sinuses and mastoid air cells are clear. The calvarium and skull base are intact. There is no mass, hematoma, midline shift, acute infarct. White matter hypodensity is nonspecific but suggestive of microvascular ischemic change. The ventricles and sulci demonstrate mild age-related involutional changes. Impression: No acute intracranial abnormality. Atrophy and microvascular ischemic changes. ACT 112: Negative or not required by law. Electronically signed by: Ciro Santos M.D. 11/13/2020 10:37 AM Head CTA 11/13/20 08:50 CTA ANGIOGRAPHY OF THE HEAD CLINICAL HISTORY: Stroke like symptoms. Right-sided numbness. COMPARISON STUDY: No previous studies for comparison. TECHNIQUE: Helical axial images of the head were obtained following uneventful intravenous administration of 116 cc of Optiray. Sagittal and coronal reconstructions were viewed as well as maximal intensity projections on an independent 3-D workstation. Automated exposure control was utilized for the study. A dose lowering technique was utilized adhering to the principles of ALARA. CT DOSE: 1073.07 mGy.cm FINDINGS: No acute intracranial hemorrhage, midline shift or mass effect is present. Ventricular system is normal. Basilar cisterns are patent. There are no extra-axial collections. No central vessel occlusion is noted. Note is made of a 3 mm aneurysm arising from the A2 segment of the left anterior cerebral artery shown on axial image 129 of 223. Tiny outpouchings of the bilateral cavernous carotids are noted and related to atherosclerosis. Posterior circulation is intact. No dissection within the intracranial vessels. Right vertebral artery is dominant. Left A1 segment is hypoplastic. IMPRESSION: 1. No central vessel occlusion. 2. 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 3. Mild atherosclerosis of the intracranial vessels. ACT 112: Negative or not required by law. Electronically signed by: Basim Vang M.D. 11/13/2020 10:42 AM Neck CTA 11/13/20 08:50 NECK CTA HISTORY: Right-sided numbness. Stroke Like Symptoms TECHNIQUE: Multiaxial CT images of the neck were performed following the intravenous administration of contrast to evaluate the major cervical vessels. Maximum intensity projection images were also obtained. All measurements were calculated based on NASCET criteria. A dose lowering technique was utilized adhering to the principles of ALARA. COMPARISON STUDY: None. FINDINGS: The aortic arch and proximal great vessels are widely patent. There is no significant stenosis, occlusion, or dissection identified within the bilateral common carotid, internal carotid, or vertebral arteries. Hypoplastic left vertebral artery. There is a focal slightly beaded appearance within the distal left internal carotid artery best seen on image 270. No associated stenosis. This could represent fibromuscular dysplasia. IMPRESSION: 1. No significant stenosis, occlusion, or dissection identified within the carotid or vertebral arteries. 2. There is a focal slightly beaded appearance within the distal left internal carotid artery. No associated stenosis. This could represent fibromuscular dysplasia. ACT 112: Negative or not required by law. Electronically signed by: Ciro Santos M.D. 11/13/2020 10:41 AM Code Status & VTE Plan VTE Prophylaxis Plan VTE Prophylaxis will be ordered: Yes Supervising Physician Co-Signing Physician Notes Attending addendum The patient was seen and examined in medical telemetry unit She was admitted with strokelike symptoms involving right arm and leg paresthesia and tingling associated with lightheadedness, headache and some nausea Symptoms have resolved following admission and he still complains to have some dizziness on standing and ambulating On examination Lying in bed comfortably Anxious Hemodynamically stable with blood pressure of 151/99 Chest-clear to auscultate bilaterally Heart-S1-S2, regular Abdomen-benign Extremities-trace edema bilaterally LUMP RECEIVER-alert, awake and oriented x3. No dysarthria and/or dysphagia. No focal sensory and motor deficit Admission labs, EKG and imaging studies reviewed Noted to have 3 mm aneurysm arising from the A2 segment of the left intracerebral artery but no other significant abnormalities in labs and/or imaging studies Will have MRI to rule out any stroke Appreciate neurology input and recommendation Agree with assessment and plan as outlined above by MCKAYLA Swan Dr
--- NOTE | 2020-11-13 14:11 | Neurology Consultation ---
Date of Consultation November 13, 2020 Assessment & Plan (1) Paresthesia of right arm and le. CTA head/neck 3mm ANR will need repeat imaging in 6 months 2. MRI with and without ordered 3. TTE- with bubble study 4. liberalize blood pressure for 24-48 hours 5. then optimize HTN ,HLD, LDL <70 6. PT/OT for discharge needs- does not appear to have any needs at this time 7. start plavix 75 mg and aspirin 81 mg daily was not on aspirin prior to admission continue for 21 days then stop plavix continue aspirin for life 8. healthy diet and exercise - weight control 9. further recommendations to follow once imaging is completed Present on Admission?: Yes Supervising Physician Co-Signing Physician Notes Patient was seen and examined. Discussed wtih Estefany Rudolph PA-C and agree with recommendations as noted. A 75 chan old pleasant Woman with Hx of HTN admitted with transient right sided numbness. Now resolved. Denies weakness or dysarthria. No hx of similar symptoms. Neuro examine non focal. CTA head and neck shows incidental aneurysm likely not significant. Agree with repeat CTA in 6 months. Symptoms concerning for possible TIA. Start ASA and PLavix as noted for 21 days then ASA. MRI brain pending. Permissive HTN for now, treat for SBP>220, and DBP>110 mm Hg. Will follow up tomorrow. History of Present Illness Reason for Consultation: stroke work up Requesting Physician: Erick May MD Attending Physician: Erick May MD History of Present Illness Opal is a 75 year old femal with PMH paresthesias right leg, CKD III, hypoth yroidism, HLD who woke up this am in her normal health. She was fixing breakfast for her grandson and had a sudden onset of right sided numbness with a modest headache. She thinks it lasted about 2 hours and when she arrived at [facility] it had resolved. She denies slurred speech, falls, weakness, vision changes. She has never had this type of symptoms and does not have a history of stroke or TIA. no family history of stroke. Allergies Allergy/AdvReac Type Severity Reaction Status Date / Time No Known Allergies Allergy Unverified 11/13/20 12:45 Home Medications Medication Instructions Recorded Confirmed Type levothyroxine [Synthroid] 25 mcg PO DAILY 11/13/20 11/13/20 History losartan 50 mg PO DAILY 11/13/20 11/13/20 History multivitamin 1 tab PO DAILY 11/13/20 11/13/20 History [id number]-vub-epa-fish oil-D3 [Fish 1 cap PO DAILY 11/13/20 11/13/20 History Oil-Vit D3] Patient History Medical History CKD (chronic kidney disease), stage III Dyslipidemia Hypothyroidism Surgical History History of hysterectomy Family History Brother Colorectal cancer Sister Uterine cancer Mother Ovarian cancer Other Cancer Social History Smoking Status: Never smoker Hx Alcohol Use: Yes Alcohol Intake Frequency: Monthly or Less Hx Substance Use: No Preferred Language: Mongolian 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 Beliefs That Will Affect Care: None Current Living Situation: Spouse Feels Safe at Home: Yes Safety Concerns: Feels Safe At This Time Review of Systems Review of Systems: All systems reviewed & are unremarkable except as noted in HPI & below Physical Exam Physical Exam: Physical Exam: Constitutional: appearance over nourished, healthy and normal Ears, Nose, Mouth and Throat: mucous membranes moist, no injection and skin normal, eyes normal Cardiovascular: normal S-1 and S-2 and regular rate and rhythm Respiratory: clear to auscultation (CTA) and no rales, rhonchi or wheeze Musculoskeletal: no peripheral edema and good distal pulses Skin: no stigmata of neurocutaneous disease noted and normal and intact Eyes: extraocular muscles intact (EOMI) and pupils equal, round and reactive to light (PERRL) NEUROLOGIC EXAMINATION: Mental status: Alert and interactive Oriented to full date and location Oriented to person, place, 2012, Biden, no ifs ands or buts, flag ball tree, does not remember flag Speech fluent with no evidence of aphasia Cranial Nerves smile eye brow raise symmetric Reflexes: Deep tendon reflexes were symmetrical decrease in LE, neutral toes Sensory: decreased with vibration RLE Coordination: finger to nose no bi pass no resting or reaching tremor Gait/Stance: Posture sitting up in bed Motor: Negative for pronator drift of out stretched arms with eyes closed. Strength: hand artist model biceps triceps 5/5 bilaterally hip flex 5/5 bilaterally Results & Data ([facility]) Vital Signs (Past 12 Hours) Vital Signs Temp Pulse Pulse Resp BP BP BP 11/13/20 13:50 37.0 C 65 16 151/99 H 11/13/20 13:32 37.0 C 65 14 151/99 H 11/13/20 13:06 70 20 159/86 H 11/13/20 11:00 68 15 197/109 H 11/13/20 09:15 11/13/20 08:21 11/13/20 08:19 36.4 C L 77 20 159/88 H Pulse Ox 11/13/20 13:50 95 11/13/20 13:32 95 11/13/20 13:06 98 11/13/20 11:00 98 11/13/20 09:15 99 11/13/20 08:21 97 11/13/20 08:19 99 Laboratory Results Abnormal lab results 11/13/20 11/13/20 Range/Units 09:15 09:15 RDW Std Deviation 46.8 H (36.4-46.3) fL BUN 21 H (7-18) mg/dl Creatinine 1.26 H (0.6-1.2) mg/dl Glucose 139 H (70-99) mg/dl AST 12 L (15-37) U/L Globulin 4.1 H (2.5-4.0) gm/dl Albumin/Globulin Ratio 0.8 L (0.9-2) Diagnostic Findings CTA head-No central vessel occlusion. 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 . Mild atherosclerosis of the intracranial vessels. CTA neck- No significant stenosis, occlusion, or dissection identified within the carotid or vertebral arteries. There is a focal slightly beaded appearance within the distal left internal carotid artery. No associated stenosis. This could represent fibromuscular dysplasia.
[2020-11-13 14:23] LABS: Lyme Ab IgG w/WB Rflx Negative (Negative); Lyme Ab IgM w/WB Rflx Negative (Negative)
[2020-11-13 14:44] LABS: Troponin I < 0.015 ng/ml (0-0.045)
[2020-11-13] MEDS: HEPARIN SOD 5,000 UNIT/0.5 ML VIAL SQ SCH ×2 (15:24→20:33)
[2020-11-13] MEDS ORDERED: CLOPIDOGREL BISULFATE 75 MG TAB PO STA (15:29)
[2020-11-13 17:28] LABS: Appearance Urine Clear (Clear); Bilirubin Urine Negative (Negative); Blood Urine Negative (Negative); Color Urine Yellow; Glucose Urine UA Negative (Negative); Ketones Urine Negative (Negative); Leukocyte Esterase Urine Negative (Negative); Nitrite Urine Negative (Negative); Protein Urine Negative (Negative); Specific Gravity Urine 1.039 (1.000-1.030); Urobilinogen Urine Negative (Negative); pH Urine 6.5 (4.5-7.5)
[2020-11-13] MEDS ORDERED: GADOBUTROL 65ML VIAL IV ONE (18:54)
--- NOTE | 2020-11-13 19:42 | Magnetic Resonance Report ---
MRI OF THE BRAIN COMBO CLINICAL HISTORY: Right-sided numbness. COMPARISON STUDY: CT of the brain dated 11/13/2020. TECHNIQUE: MRI of the brain was performed utilizing various T1 and T2-weighted sequences in the axial , sagittal, and coronal planes. Contrast-enhanced sequences were acquired following the administratio n of 8.5 cc of Gadavist. FINDINGS: Brain parenchyma: There is age-related involutional change noting moderate subcortical and periventri cular microangiopathic disease. There is no hemorrhage or mass effect. There is no restricted diffusi on to suggest acute ischemia. No enhancing mass lesion is identified on the postcontrast images. Hernadez -white matter differentiation is preserved. No extra-axial fluid collection is seen. The cerebellar t onsils are normal in configuration. Ventricles, sulci, and cisterns: Prominent secondary to involutional change. Pituitary and sella: Unremarkable. Intracranial vasculature: Normal flow voids are maintained at the skull base. Orbits: The bony orbits are grossly intact. Orbital contents are normal in appearance noting bilatera l ocular lens implants. Sinuses and mastoids: There are small mastoid effusions. The paranasal sinuses are clear. Calvarium: Unremarkable. Cervical cord: Partially visualized cervical spinal cord is normal in morphology and signal intensity . IMPRESSION: No acute intracranial abnormality. ACT 112: Negative or not required by law. Electronically signed by: Anibal Paul M.D. 11/13/2020 7:41 PM
[2020-11-14] MEDS: HEPARIN SOD 5,000 UNIT/0.5 ML VIAL SQ SCH (06:15)
--- NOTE | 2020-11-14 06:20 | Electrocardiogram Report ---
Test Reason : Blood Pressure : / mmHG Vent. Rate : 063 BPM Atrial Rate : 063 BPM P-R Int : 194 ms QRS Dur : 066 ms QT Int : 384 ms P-R-T Axes : 015 -22 -11 degrees QTc Int : 392 ms Poor data quality, interpretation may be adversely affected Normal sinus rhythm Inferior infarct , age undetermined Anterolateral infarct , age undetermined Abnormal ECG When compared with ECG of 29-OCT-2002 10:34, Anterolateral infarct is now Present Inferior infarct is now Present Confirmed by Taj Barker ([id number]) on 11/14/2020 6:19:50 AM Referred By: REFERRED SELF Confirmed By:Taj Barker
[2020-11-14] MEDS ORDERED: LEVOTHYROXINE SODIUM 25 MCG TABLET PO SCH (06:30)
[2020-11-14 07:40] LABS: Hematocrit (blood only) 39.5 % (37-47); Hemoglobin 13.6 g/dL (12.0-16.0); Mean Corpuscular Hemoglobin 32.3 pg (25-34); Mean Corpuscular Hgb Conc 34.4 g/dL (32-36); Mean Corpuscular Volume 93.8 fL (80-100); Mean Platelet Volume 8.8 fL (7.4-10.4); Platelet Count 277 K/uL (130-400); RDW Coefficient of Variation 13.7 % (11.5-14.5); RDW Standard Deviation 46.8 fL (36.4-46.3); Red Blood Count 4.21 M/uL (4.2-5.4); White Blood Count 5.17 K/uL (4.8-10.8)
[2020-11-14 07:56] LABS: BUN Creatinine Ratio 14.5 (10-20); Calcium 8.7 mg/dl (8.5-10.1); Creatinine Clr Calc Pharmacy 39.6 ml/min; Est GFR (African American) 47.4; Est GFR (Non-African American) 40.9; Potassium 4.1 mmol/L (3.5-5.1)
[2020-11-14] MEDS ORDERED: OMEGA-3 (PURIFIED FISH OIL) 1 GM CAP PO SCH (09:00)
[2020-11-14] MEDS ORDERED: LOSARTAN POTASSIUM 50 MG TAB PO SCH (09:00)
[2020-11-14] MEDS ORDERED: ASPIRIN 81 MG ECTAB PO SCH (09:00)
[2020-11-14] MEDS ORDERED: CLOPIDOGREL BISULFATE 75 MG TAB PO SCH (09:00)
[2020-11-14 09:49] LABS: Estimated Average Glucose 131 mg/dl; Hemoglobin A1C 6.2 % (4.5-5.6)
--- NOTE | 2020-11-14 10:50 | Hospitalist Progress Note ---
Date of Service November 14, 2020 Assessment & Plan (1) Paresthesia of right arm and leg: Pt is 75 y/o F with PMH CKD III, dyslipidemia, hypothyroidism presented to ER with c/o right sided arm and leg paresthesias, lightheaded sensation today. In ER afebrile, BP: 159/88, R: 20, P: 77, 99% on RA. No leukocytosis, no significant electrolyte abnormality, glucose: 139, negative troponin, Negative COVID 19 PCR CTA Head: No central vessel occlusion. 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 Mild atherosclerosis of the intracranial vessels. NECK CTA: No significant stenosis, occlusion, or dissection identified within the carotid or vertebral arteries. There is a focal slightly beaded appearance within the distal left internal carotid artery. No associated stenosis. This could represent fibromuscular dysplasia. DDX: TIA, CVA, hypertensive emergency Pt took 325mg aspirin prior to arrival Did not have any arrhythmias on telemetry Echo of the heart showed-mild concentric LVH with EF of 60 to 65%, grade 1 diastolic dysfunction and no significant valvular pathology MRI of the head did not show any stroke CTA of the head neck did not show any significant stenosis 3 mm aneurysm of the A2 segment will need to be followed up as an outpatient with repeated scan Relevant blood tests remain unremarkable Appreciate neurology input and recommendation Has been getting PT and OT evaluation Likely home this afternoon (2) CKD (chronic kidney disease), stage III: Cr: 1.26. Baseline Cr: 1.4 -Monitor renal functions, avoid nephrotoxic agents when possible -Creatinine remains stable at 1.28 (3) Hypothyroidism: -TSH-2.510 -Continue levothyroxine (4) Dyslipidemia: -Continue fish oil -Lipid profile showed-triglyceride 195, total cholesterol 232, LDL 147 and HDL 46 DVT Prophylaxis -SCDs Full Code as per discussion with pt Follows with Dr Harvey for routine care Likely home this afternoon provided she feels physically and mentally able to go Admission and Anticipated Discharge Date Admission Date: November 13, 2020 Subjective 11/14/2020 The patient was seen and examined in medical telemetry unit She has been feeling much better this morning and all of her neurological symptoms resolved Still feels dizzy whenever she is ambulant Denies any fever and/or chills Review of Systems Review of Systems: All systems reviewed and are unremarkable except as noted below Neurologic: + generalized weakness Alert awake and oriented x3. Physical Exam Physical Exam: Lying in bed comfortably Constitutional: well developed, well nourished and + obese; not ill appearing Eyes: PERRL, conjunctivae normal, anicteric sclerae ENMT: external ear and nose normal, oropharynx normal Neck: trachea midline, no thyromegaly Respiratory: no respiratory distress Auscultation: lungs clear to auscultation bilaterally Cardiovascular: Rate/Rhythm: regular rate and regular rhythm Heart Sounds: no murmur Extremities: + edema (Trace edema bilaterally) Gastrointestinal (Abdomen): Inspection/Auscultation: normal bowel sounds; abdomen not distended Percussion/Palpation: abdomen soft; abdomen nontender Musculoskeletal: No acute arthritis in any joint Neurologic: Alert, awake and oriented x3, generally weak but no focal neuro deficit Psychiatric: Mood: + anxious mood Lymphatic: no cervical or axillary lymphadenopathy Results & Data Results & Data ([facility]) Vital Signs (Past 12 Hours) Vital Signs Temp Pulse Pulse Resp BP Pulse Ox 11/14/20 08:00 93 H 11/14/20 07:18 36.6 C 72 18 154/88 H 93 11/14/20 04:21 36.7 C 75 18 129/77 95 11/14/20 00:57 69 11/13/20 23:24 36.9 C 73 18 143/83 H 93 Laboratory Results Short CBC 11/14/20 Range/Units 07:10 WBC 5.17 (4.8-10.8) K/uL Hgb 13.6 (12.0-16.0) g/dL Hct 39.5 (37-47) % Plt Count 277 (130-400) K/uL BMP 11/14/20 07:10 Sodium 138 Potassium 4.1 Chloride 106 Carbon Dioxide 27 BUN 19 H Creatinine 1.28 H Glucose 119 H Calcium 8.7 Cardiac Enzymes 11/13/20 Range/Units 13:55 Troponin I < 0.015 (0-0.045) ng/ml Urine 11/13/20 Range/Units Unknown Urine Color Yellow Urine Appearance Clear (Clear) Urine pH 6.5 (4.5-7.5) Ur Specific [place] 1.039 H (1.000-1.030) Urine Protein Negative (Negative) Urine Glucose (UA) Negative (Negative) Medications Administered Current Inpatient Medications Acetaminophen (Acetaminophen 325 Mg Tab) 650 mg PO Q4H PRN PRN Reason: Pain or Fever Stop: 12/13/20 13:31 Aspirin (Aspirin 81 Mg Ectab) [facility] [place]: 12/14/20 08:59 Last Admin: 11/14/20 07:51 Dose: 81 mg Documented by: Clopidogrel Bisulfate (Clopidogrel Bisulfate 75 Mg Tab) [facility] [place] Stop: 12/14/20 08:59 Last Admin: 11/14/20 07:51 Dose: 75 mg Documented by: Fish Oil ([place]-3 (Purified Fish Oil) 1 Gm Cap) 1 gm PO DAILY [facility] Stop: 12/14/20 08:59 Last Admin: 11/14/20 07:51 Dose: 1 gm Documented by: Heparin Sodium (Porcine) (Heparin Sod 5,000 Unit/0.5 Ml Vial) 5,000 units SQ Q8 [facility] Stop: 12/13/20 13:59 Last Admin: 11/14/20 06:15 Dose: 5,000 units Documented by: Levothyroxine Sodium (Levothyroxine Sodium 25 Mcg Tablet) 25 mcg PO DAILYBB [facility] Stop: 12/14/20 06:29 Last Admin: 11/14/20 06:15 Dose: 25 mcg Documented by: Losartan Potassium (Losartan Potassium 50 Mg Tab) 50 mg PO DAILY [facility] Stop: 12/14/20 08:59 Last Admin: 11/14/20 07:51 Dose: 50 mg Documented by: Miscellaneous Information (Pharmacist Discharge Med Rec Consult) 1 ea N/A UD PRN PRN Reason: Consult Stop: 12/13/20 13:31 Ondansetron HCl (Ondansetron Inj 2 Mg/Ml 2 Ml Vial) 4 mg IV Q6H PRN PRN Reason: Nausea Stop: 12/13/20 13:31 Polyethylene Glycol (Polyethylene (Miralax) 17 Gm Pack) 17 gm PO DAILY PRN PRN Reason: Constipation Stop: 12/13/20 13:31
--- NOTE | 2020-11-14 11:08 | Progress Notes ---
DATE: 11/14/2020 NEUROLOGY PROGRESS NOTE CHIEF COMPLAINT: Right-sided numbness. SUBJECTIVE: The patient was seen and examined. No acute events noted overnight. MRI of the brain was completed. No recurrence of symptoms. PHYSICAL EXAMINATION: VITAL SIGNS: Blood pressure 154/88, pulse is 93, respiratory rate 18, temperature is 36.6 degrees Celsius, oxygen saturation is 93% on room air. NEUROLOGIC: The patient is awake, alert and oriented to person, place and time. HEENT: Atraumatic and normocephalic. Normal eyelids, normal conjunctivae NECK: Supple. LUNGS: Normal respiratory effort. CARDIOVASCULAR: Normal cardiac pulses. ABDOMEN: Nondistended. SKIN: No skin rash. NEUROLOGIC: Normal mood. She is awake, alert, oriented to person, place and time. Speech is clear. Comprehension is intact. No visual defect on confrontation. Pupils are symmetric. Face is symmetric. Intact hearing. Palate is symmetric. Tongue is midline. Gait is normal. She has no tremor or ataxia with crdbaf-ij-mads testing. Sensation is intact and symmetric to light touch and normal muscle tone. Muscle strength is 5/5. Reflexes show a negative Emily sign and no ankle clonus. DIAGNOSTIC TESTING AND LABORATORY VALUES: Transthoracic echocardiogram completed, ejection fraction 60-65%, mild concentric left ventricular hypertrophy. No significant valvular pathology. There is no thrombus. The left ventricular wall motion is normal. MRI of the brain without contrast showed no acute intracranial abnormality. There was age related involutional change noting moderate subcortical and periventricular microangiopathic ischemic change. No hemorrhage or mass effect. No restricted diffusion to suggest acute ischemia. ASSESSMENT AND PLAN: This is a very pleasant 75-year-old woman with no prior history of stroke or TIA with a history of hypertension, admitted with intermittent right sided numbness, which resolved upon admission. Symptoms concerning for possible transient ischemic attack. MRI of the brain was reviewed and I am happy to report there is no evidence of acute stroke. The subcortical white matter changes seen on T2 FLAIR imaging coronal sequences is likely consistent with known history of hypertension. Transthoracic echocardiogram report was also reviewed and no evidence of cardiac thrombus with a normal ejection fraction with no left ventricular hypertrophy. Recommend to continue aspirin 81 mg daily and Plavix 75 mg daily for 21 days, then aspirin 81 mg daily indefinitely. Recommend starting a high intensity statin, Lipitor 40 mg daily for secondary stroke prevention. Blood pressure goal is normotension. Systolic blood pressure goal is less than 140, diastolic blood pressure less than 90. Otherwise, the patient can be discharged today. Recommend Neurology followup in 8 weeks. Please contact me with any additional questions or concerns.
[2020-11-14] MEDS ORDERED: STROKE PATIENT DISCHARGE STA (12:27)
[2020-11-14] MEDS ORDERED: ATORVASTATIN 40 MG TAB PO SCH (12:30)
--- NOTE | 2020-11-14 12:56 | Pharmacy Report ---
Pharmacist Stroke Counseling - Date of Service November 14, 2020 - Scope: Pharmacy has been consulted to provide medication discharge counseling for this patient admitted with transient ischemic attack as per the Pharmacist Discharge Counseling for Stroke Patients Protocol. - Medications on Discharge: Home Medications Medication Instructions Recorded Confirmed levothyroxine [Synthroid] 25 mcg PO DAILY 11/13/20 11/13/20 losartan 50 mg PO DAILY 11/13/20 11/13/20 multivitamin 1 tab PO DAILY 11/13/20 11/13/20 [id number] oil-D3 [Fish 1 cap PO DAILY 11/13/20 11/13/20 Oil-Vit D3] New Rx's Medication Instructions Recorded aspirin 81 mg PO QAM #30 tab 11/14/20 atorvastatin [Lipitor] 40 mg PO DAILY #30 tab 11/14/20 clopidogrel 75 mg PO QAM #20 tab 11/14/20 - Action: The above medications, specifically ones for stroke treatment/prophylaxis, have been reviewed in detail with the patient and/or patient union contract representative(s) prior to discharge. This includes indication, common adverse reactions, drug interactions, and medication administration. Medication counseling has been employed using the teach-back method to ensure understanding. - Outcome: The patient and/or patient union contract representative(s) have demonstrated understanding of the medications. Additional comments: * Stroke counseling provided via telephone to patient's room prior to discharge today * Reviewed indication, dosing, and potential adverse effects of new Rx's * Patient understands to take both Plavix + aspirin x 20 days, then aspirin 81mg daily only thereafter. Aware she can purchase ASA OTC. Aware to monitor for bleeding/bruising and to be careful of falls and injury especially while on DAPT. * Has never been on statin before; aware to monitor for possible myalgia. * Patient only takes Tylenol prn; avoids NSAID's due to CKD. Explained NSAID's can also incr' bleeding risk * BP elevated while admitted. Patient does have home BP cuff, but has never used since HTN was not an issue before. She will continue losartan as prescribed and start checking home BP's. Recommend to bring readings to PCP for review. Unsure if losartan needs adjusted. Aware that HTN control needed to reduce stroke/CV risk. * Recommend she discuss with PCP about whether or not she still needs fish oil as this incr' risk for bleeding with aspirin and Plavix. * Patient was able to repeat counseling and demonstrate understanding. Thank you for allowing pharmacy to be involved in the care of this patient. Please call [phone] with any additional questions - Discharge Information: Pharmacists Notes:: - Please check with your doctor about whether you need to take fish oil because it can increase your risk for bleeding with your new medications (aspirin and clopidogrel [Plavix]). - Check your blood pressure and bring readings to your doctor for review to see if your losartan needs adjusted. As you know, your blood pressure has been high while in the hospital. - Please report any new or unusual side effects to your doctor. - Remember to watch for any bleeding, bruising, or muscle aches/pain. - Please take your medications as written on your discharge packet
--- NOTE | 2020-11-15 08:15 | Discharge Summary ---
Date of Service November 15, 2020 Admission HPI Per Admitting Provider Pt is 75 y/o F with PMH CKD III, dyslipidemia, hypothyroidism presented to ER with c/o right sided paresthesias today. Patient states this morning was standing in kitchen for approximately 20 minutes when she started with right arm and right leg paresthesias described as tingling sensation. She also reports felt lightheaded. She reports she went upstairs to let her and was afraid that she would fall secondary to the paresthesias however is unsure if she had weakness of her extremities. When she was telling her about symptoms she reported that she was having trouble catching her breath and had some slight nausea. Patient reports she thinks this was secondary to being concerned about the symptoms she was having. Also complains of "headachy feeling" but not true headache. Denies any vomiting, diarrhea, syncope, vision changes. She took full aspirin prior to arrival. Had cup coffee today and a little orange juice. Patient reports was still having right-sided paresthesias upon ER arrival however thinks they have since resolved. She does report that she felt lightheaded when ambulating to bathroom in ER. Patient received a second COVID-19 vaccination on 10/06/2020. She traveled to [place] 10/22/2020 and returned home last week. Denies any known tick bites. Denies fever/chills, diaphoresis, syncope, vision changes, neck pain, CP, orthopnea, palpitations, cough, sore throat, choking, otalgia, rhinorrhea, abdominal pain, extremity edema, rashes, urinary symptoms. Admission Exam Per Admitting Provider Physical Exam: General: no distress, WDWN Head: normocephalic, atraumatic Eyes: PERRL, EOM's intact, no nystagmus, conjunctiva non-injected, anicteric ENT: normal inspection external ears, nose, mucous membranes moist Neck: supple, trachea midline, ROM intact Lungs: clear, no respiratory distress, no wheezing/rhonchi/rales CV: RRR, no murmur, no pretibial edema Abd: normal BS, soft, non-tender Ext: no cyanosis, no calf tenderness Neuro: A&O x 3, Facial sensation is intact and symmetric, face is strong and symmetric, Hearing grossly intact, Soft palate elevates symmetrically, no dysarthria, Shoulder shrug intact, Tongue is midline, normal movement, no fasciculations. Muscle tone normal. Normal affect Skin: warm, dry Principal Diagnosis TIA, hypertensive urgency, hyperlipidemia, chronic kidney disease Discharge Exam Constitutional well developed, well nourished and + obese; not ill appearing Eyes PERRL, conjunctivae normal, anicteric sclerae ENMT external ear and nose normal, oropharynx normal Neck trachea midline, no thyromegaly Respiratory no respiratory distress Auscultation: lungs clear to auscultation bilaterally Cardiovascular Rate/Rhythm: regular rate and regular rhythm Heart Sounds: no murmur Extremities: + edema (Trace edema bilaterally) Gastrointestinal (Abdomen) Inspection/Auscultation: normal bowel sounds; abdomen not distended Percussion/Palpation: abdomen soft; abdomen nontender Psychiatric Mood: + anxious mood Lymphatic no cervical or axillary lymphadenopathy Discharge Data Allergies Allergy/AdvReac Type Severity Reaction Status Date / Time No Known Allergies Allergy Unverified 11/13/20 12:45 Consultations 11/13/20 11:00 ED Decision to Admit Stat 11/13/20 13:32 Consult Neurology Routine Ordered Studies 11/13/20 08:50 CT angio head w con Stat CT angio neck with con Stat CT head/brain wo con Stat 11/13/20 13:32 MR brain wo/w con Routine Hospital Course (1) Paresthesia of right arm and leg: Pt is 75 y/o F with PMH CKD III, dyslipidemia, hypothyroidism presented to ER with c/o right sided arm and leg paresthesias, lightheaded sensation today. In ER afebrile, BP: 159/88, R: 20, P: 77, 99% on RA. No leukocytosis, no significant electrolyte abnormality, glucose: 139, negative troponin, Negative COVID 19 PCR CTA Head: No central vessel occlusion. 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 Mild atherosclerosis of the intracranial vessels. NECK CTA: No significant stenosis, occlusion, or dissection identified within the carotid or vertebral arteries. There is a focal slightly beaded appearance within the distal left internal carotid artery. No associated stenosis. This could represent fibromuscular dysplasia. DDX: TIA, CVA, hypertensive emergency Pt took 325mg aspirin prior to arrival Did not have any arrhythmias on telemetry Echo of the heart showed-mild concentric LVH with EF of 60 to 65%, grade 1 diastolic dysfunction and no significant valvular pathology MRI of the head did not show any stroke CTA of the head neck did not show any significant stenosis 3 mm aneurysm of the A2 segment will need to be followed up as an outpatient with repeated scan Relevant blood tests remain unremarkable Appreciate neurology input and recommendation Has been getting PT and OT evaluation Likely home this afternoon (2) CKD (chronic kidney disease), stage III: Cr: 1.26. Baseline Cr: 1.4 -Monitor renal functions, avoid nephrotoxic agents when possible -Creatinine remains stable at 1.28 (3) Hypothyroidism: -TSH-2.510 -Continue levothyroxine (4) Dyslipidemia: -Continue fish oil -Lipid profile showed-triglyceride 195, total cholesterol 232, LDL 147 and HDL 46 DVT Prophylaxis -SCDs Full Code as per discussion with pt Follows with Dr Harvey for routine care Likely home this afternoon provided she feels physically and mentally able to go Total Time Total Time Spent Total Time Spent (In Minutes): 35 minutes Total Time Includes: Examination of the Patient, Discharge Planning, Medication Reconciliation and Communication With Other Providers Discharge Plan Discharge Items Patient Disposition: Home - Self-Care Reason For Visit: STROKE EVAL Discharge Diagnosis: TIA, hypertensive urgency, hyperlipidemia, chronic kidney disease Condition on Discharge: Fair Activity: Resume your previous activity Non-emergency contact: Primary Care Provider Call non-emergency contact if: you have any medication questions and your symptoms worsen Follow-up/Referrals: Diogo Harvey MD [Primary Care Provider] - (Will call you with an appointment with your primary care provider within 7 days) Diet: Heart Healthy and Low Sodium (2gm) Addtl Attending Provider Instructions: Please take precaution to avoid falls Take your medications as prescribed Please keep follow-up appointments with your primary care provider and specialist Pending Studies at Discharge: No Stand-Alone Forms: Medications to Prevent Stroke, My Taketake, Smoking Cessation Medications and DC Order Prescriptions: New clopidogrel 75 mg Tablet 75 mg PO QAM Qty: 20 RF: 0 aspirin 81 mg Tablet,Delayed Release (Dr/Ec) 81 mg PO QAM Qty: 30 RF: 0 atorvastatin [Lipitor] 40 mg tablet 40 mg PO DAILY Qty: 30 RF: 0 Continued losartan 50 mg tablet 50 mg PO DAILY RF: 0 levothyroxine [Synthroid] 25 mcg Tablet 25 mcg PO DAILY RF: 0 multivitamin Tablet 1 tab PO DAILY RF: 0 [id number] oil-D3 [Fish Oil-Vit D3] 360 mg-1,200 mg -1,000 unit Capsule 1 cap PO DAILY RF: 0 Discharge Orders: Discharge Order (Routine); Ordered 11/14/20 Ordered By: Erick May Admission Data Admit Date/Time: 11/13/20 11:46 Attending Provider: Erick May Admit Provider: Erick May Primary Care Provider: Diogo Harvey Other Providers: Lyudmila Velazquez ; Shoaib Gomez Other Interventions: Discharge Summary Assessment (RN) Last Done: 11/14/20 12:38
== END 2020-11-14 14:02 | disposition home or self-care (01) ==
LOC: 2N 08:15 → ED 08:15 → 2N 13:06